=== PATIENT | female | born 1945 | race African-American/Black ===

== ENCOUNTER → 2017-03-07 | Outpatient (CLI) | payer BC ==
--- NOTE | 2017-03-07 14:24 | PCVCIMAG ---
EXAM: BILATERAL LOWER EXTREMITY ARTERIAL DUPLEX INDICATION: Peripheral Arterial Disease. Leg pain. Previous iliac artery stents. FINDINGS: Right Leg: Satisfactory arterial waveforms throughout the common/profunda/superficial femoral, popliteal, anterior tibial, peroneal, and posterior tibial arteries. No flow limiting stenosis seen. Left Leg: Satisfactory arterial waveforms in the common femoral and profunda femoral artery and throughout the superficial femoral artery and popliteal arteries without high-grade stenosis. Mild 40-50% stenosis zuni proximal superficial femoral artery. The peroneal artery and posterior tibial arteries are patent. 60% stenosis proximal left anterior tibial artery. IMPRESSION: No flow limiting stenosis in the right lower extremity. No flow limiting stenosis in the left lower extremity. LOC:[id number]
== END | disposition home or self-care (01) ==
LOC: PCVCIMAG 13:20
PROVIDERS: ATTEND Nuclear Medicine Nuclear Cardiology
DX: I73.9 Peripheral vascular disease, unspecified (principal); E78.00 Pure hypercholesterolemia, unspecified; E11.9 Type 2 diabetes mellitus without complications; I77.9 Disorder of arteries and arterioles, unspecified; I10 Essential (primary) hypertension; Z98.890 Other specified postprocedural states; Z90.710 Acquired absence of both cervix and uterus; Z90.722 Acquired absence of ovaries, bilateral; Z87.891 Personal history of nicotine dependence; Z79.82 Long term (current) use of aspirin; Z79.899 Other long term (current) drug therapy; Z88.5 Allergy status to narcotic agent
CPT/HCPCS: 93925; G0463

== ENCOUNTER → 2017-12-21 | Outpatient (CLI) | payer OTHER, BC | END | disposition home or self-care (01) | LOC: PCVCIMAG 09:39 | DX: I65.23 Occlusion and stenosis of bilateral carotid arteries (principal); I73.9 Peripheral vascular disease, unspecified | CPT/HCPCS: 93880; 93923; 93978 ==

== ENCOUNTER → 2018-12-14 | Outpatient (CLI) | payer OTHER ==
--- NOTE | 2018-12-14 10:27 | PCVCIMAG ---
EXAM: AORTOILIAC DUPLEX INDICATION: Peripheral arterial disease FINDINGS: AORTA: Suprarenal aorta measures maximum diameter of 2.5 cm. There is not a fusiform infrarenal aortic aneurysm. The infrarenal aorta measures maximum diameter of 2.3 cm. No aortic stenosis. RIGHT COMMON ILIAC ARTERY: Maximum diameter is 1.0 cm. No significant stenosis. RIGHT EXTERNAL ILIAC ARTERY: No significant stenosis. LEFT COMMON ILIAC ARTERY: Maximum diameter is 1.0 cm. No significant stenosis. LEFT EXTERNAL ILIAC ARTERY: No significant stenosis. IMPRESSION: No abdominal aortic aneurysm. No aortoiliac stenosis seen. LOC:[id number]
== END | disposition home or self-care (01) ==
LOC: PCVCIMAG 09:37
PROVIDERS: ATTEND Nuclear Medicine Nuclear Cardiology
DX: I73.9 Peripheral vascular disease, unspecified (principal); I25.10 Atherosclerotic heart disease of native coronary artery without angina pectoris; E78.00 Pure hypercholesterolemia, unspecified; I10 Essential (primary) hypertension; E78.5 Hyperlipidemia, unspecified; E11.9 Type 2 diabetes mellitus without complications; Z87.891 Personal history of nicotine dependence
CPT/HCPCS: 93978

== ENCOUNTER → 2020-02-01 | Outpatient (CLI) | payer OTHER ==
[~2020-02-01] MED LIST: AMLO5TAB10 PO; ASPI-630 PO; ATOR40TA59 PO; AZIL1TAB3 PO; BYSTOLIC10 MG PO; CLOP75TA PO; COLC0.6C PO; ISOS30TA4 PO; ISOS60TA2 PO; OMEG100021 PO
== END | disposition home or self-care (01) ==
LOC: LAB 15:40
PROVIDERS: ATTEND Ophthalmology
DX: Z20.828 Contact with and (suspected) exposure to other viral communicable diseases (principal)
CPT/HCPCS: U0003-CS

== ENCOUNTER 2020-02-06 10:37 | Day surgery (SDC) | payer OTHER ==
[~2020-02-06 10:37] MED LIST changes: +CHONDROIT-SOD-HYALURONATE KIT. ONE; +CHONDROITIN-SOD-HYALURONATE 0.5 ML DISP.SYRIN. ONE; +CIPROFLOXACIN 0.3% OPHTH SOLUTION 5ML BOTTLE. OS ONE; +IV RINGERS,LACTATED 1000ML 1,000 ML IV SCH; +LIDOCAINE 1% PF 2 ML VIAL. ONE; +LIDOCAINE 2% JELLY 6ML IN APPLICATOR. ONE; +LIDOCAINE 2% JELLY 6ML IN APPLICATOR. OS ONE; +NEO/POLYMYX/DEXAMETH OPHTH OINTMENT 3.5GM TUBE. ONE; +PROPARACAINE 0.5% OPHTH SOLUTION 15ML BOTTLE. OS ONE; +TRYPAN BLUE 0.06% INTRAOCULAR 0.5 ML SYRINGE. ONE
[2020-02-06] MEDS ORDERED: LIDOCAINE 1%/PHENYLEPH 1.5% PF OPHTH 1 ML VIAL. ONE (10:54)
[2020-02-06] MEDS: PHENYLEPHRINE 10% OPHTH SOLUTION 5ML BOTTLE. OS SCH ×3 (11:37→11:47)
[2020-02-06] MEDS: CYCLOPENTOLATE 1% OPHTH SOLUTION 2ML BOTTLE. OS SCH ×3 (11:37→11:47)
[2020-02-06] MEDS ORDERED: LIDOCAINE 2% JELLY 6ML IN APPLICATOR. OS ONE (12:00)
[2020-02-06] MEDS ORDERED: MIDAZOLAM HCL/PF 2 MG/2 ML VIAL. ONE (12:29)
[2020-02-06 13:20] VITALS: BP 156/54
--- NOTE | 2020-02-06 13:20 | OP ---
DATE OF SURGERY: 02/06/2020 PREOPERATIVE DIAGNOSES: 1. 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 2. Cataract of the left eye. PROCEDURE: 1. Goniotomy with [place] Dual blade. 2. Cataract extraction with posterior chamber intraocular lens implantation of the left eye. INDICATION: Painless progressive visual loss and visually significant cataract and difficulty reading. SURGEON: Zak Stein MD ANESTHESIA: Topical with monitored anesthesia care. DESCRIPTION OF PROCEDURE: The left eye was prepped with Betadine in the usual sterile fashion and draped. A paracentesis was performed followed by instillation of preservative-free lidocaine admixed with phenylephrine. A temporal clear corneal incision was made followed by instillation of Viscoat. The head and microscope were repositioned to visualize the anterior chamber angle and the Dual blade was used to excise the trabecular meshwork in the inferior nasal quadrant. The head and microscope were repositioned and a capsulorrhexis was performed followed by hydrodissection. The nucleus was then removed in a stop modified stop and chop fashion. The I/A handpiece was used to remove the cortex. Viscoelastic was injected in the anterior chamber. An [place] model [id number] with a power of 21.0 diopters was placed into the capsular bag. Balanced salt solution was used to hydrate the clear corneal incision. The viscoelastic evacuated with the I/A handpiece. Once no leak was noted, Maxitrol was placed on the eye and the eye shielded and the patient was sent to the recovery room uneventfully. She was given 1000 mg of Diamox in the holding area. ZAK STEIN MD DR: JORDYN/xander JOB#: [id number] / [id number]
[2020-02-07] MEDS ORDERED: PHENYLEPHRINE 2.5% OPHTH SOLUTION 2ML BOTTLE. OS SCH (06:01)
== END 2020-02-06 13:38 | disposition home or self-care (01) ==
LOC: SURG 10:37
PROVIDERS: ATTEND Ophthalmology
DX: E11.36 Type 2 diabetes mellitus with diabetic cataract (principal); H40.10X0 Unspecified open-angle glaucoma, stage unspecified; H26.8 Other specified cataract; I73.9 Peripheral vascular disease, unspecified; I10 Essential (primary) hypertension; Z88.5 Allergy status to narcotic agent; Z79.82 Long term (current) use of aspirin; Z79.899 Other long term (current) drug therapy; Z87.891 Personal history of nicotine dependence; Z98.890 Other specified postprocedural states
CPT/HCPCS: 66984; J0171; J0690; J1580; J2250; J3490; C1780

== ENCOUNTER → 2020-02-13 | Day surgery (SDC) | payer OTHER ==
[~2020-02-13] MED LIST changes: +BALANCED SALT IRRIG OPHTH SOLN 15 ML BOTTLE. IO ONE; +CIPROFLOXACIN 0.3% OPHTH SOLUTION 5ML BOTTLE. OD ONE; -CIPROFLOXACIN 0.3% OPHTH SOLUTION 5ML BOTTLE. OS ONE; -IV RINGERS,LACTATED 1000ML 1,000 ML IV SCH; +LIDOCAINE 1% PF 2 ML VIAL. ID PRN; +LIDOCAINE 1%/PHENYLEPH 1.5% PF OPHTH 1 ML VIAL. ONE; +LIDOCAINE 2% JELLY 6ML IN APPLICATOR. OD ONE; -LIDOCAINE 2% JELLY 6ML IN APPLICATOR. ONE; -LIDOCAINE 2% JELLY 6ML IN APPLICATOR. OS ONE; +MIDAZOLAM HCL/PF 2 MG/2 ML VIAL. ONE; +ONDANSETRON PF 4 MG/2 ML VIAL. IV PRN; +PROCHLORPERAZINE 10 MG/2 ML VIAL. IV PRN; +PROPARACAINE 0.5% OPHTH SOLUTION 15ML BOTTLE. OD ONE; -PROPARACAINE 0.5% OPHTH SOLUTION 15ML BOTTLE. OS ONE; -TRYPAN BLUE 0.06% INTRAOCULAR 0.5 ML SYRINGE. ONE; +fentaNYL PF VIAL 100 MCG/2 ML VIAL IV PRN
[2020-02-13] MEDS: IV RINGERS,LACTATED 1000ML 1,000 ML IV SCH ×2 (11:10→11:14)
[2020-02-13] MEDS: PHENYLEPHRINE 10% OPHTH SOLUTION 5ML BOTTLE. OD SCH ×3 (11:13→11:23)
[2020-02-13] MEDS: CYCLOPENTOLATE 1% OPHTH SOLUTION 2ML BOTTLE. OD SCH ×3 (11:13→11:23)
[2020-02-13 12:58] VITALS: BP 141/103
--- NOTE | 2020-02-13 13:31 | OP ---
DATE OF SURGERY: 02/13/2020 PREOPERATIVE DIAGNOSES: 1. Open-angle glaucoma of the right eye. 2. Cataract of the right eye. PROCEDURES: 1. Goniotomy of the right eye with [place] Dual blade. 2. Cataract extraction with posterior chamber intraocular lens implantation of the right eye. INDICATION: Visually significant cataract, difficulty reading and open angle glaucoma. DESCRIPTION OF PROCEDURE: The right eye was prepped with Betadine in the usual sterile fashion and draped. A paracentesis was performed followed by instillation of 1% preservative-free lidocaine. A temporal clear corneal incision was made followed by instillation of viscoelastic. The head and microscope were repositioned to visualize the anterior chamber angle and the Dual blade was used to excise a portion of the nasal trabecular meshwork. The head and microscope were repositioned and a capsulorrhexis followed by hydrodissection was done. The phacoemulsification handpiece was used to remove the nucleus in a modified stop and chop fashion. The I/A handpiece was used to remove the remainder of the cortex. Viscoelastic was injected in the capsular bag and an [place] model SN60WF with a power of 20.0 diopters was placed into the capsular bag. Balanced salt solution was used to hydrate the corneal wounds and the viscoelastic evacuated with the I/A handpiece. Once no leak was noted, Maxitrol was placed on the eye and the eye shielded and the patient was sent to the recovery room uneventfully. ZAK GREY MD DR: JORDYN/xander JOB#: [id number] / [id number]
== END | disposition home or self-care (01) ==
LOC: SURG 10:30
PROVIDERS: ATTEND Ophthalmology
DX: H40.10X0 Unspecified open-angle glaucoma, stage unspecified (principal); H26.8 Other specified cataract; I10 Essential (primary) hypertension; E11.36 Type 2 diabetes mellitus with diabetic cataract; Z88.5 Allergy status to narcotic agent; Z79.82 Long term (current) use of aspirin; Z79.899 Other long term (current) drug therapy; Z79.84 Long term (current) use of oral hypoglycemic drugs; Z87.891 Personal history of nicotine dependence
CPT/HCPCS: 66984; C1780; J0171; J0690; J1580; J2250; J3490